=== PATIENT | male | born 1970 | race Caucasian/White ===

== ENCOUNTER 2021-04-12 20:22 | Emergency (ER) | payer SELFPAY ==
[2021-04-12] MEDS ORDERED: Morphine 4 MG/ML VIAL ONE (21:02)
[2021-04-12 21:03] LABS: #Basophils 0.1 thou/uL (0.0-0.2); #Eosinphils 0.1 thou/uL (0.0-0.7); #Lymphocytes 2.6 thou/uL (1.20-3.40); #Neutrophils 7.3 thou/uL (1.40-6.50); %Basophils 0.7 % (0.0-1.0); %Eosinophils 1.3 % (0.0-10.0); %Lymphocytes 23.7 % (21.0-51.0); %Monocytes 9.1 % (0.0-10.0); %Neutrophils 65.3 % (42.0-75.0); Hemoglobin 16.9 g/dL (14.0-18.0); Mean Corpuscular HGB CONC 34.1 g/dL (32.0-36.0); Mean Corpuscular Hemoglobin 34.3 pg (27.0-31.0); Mean Platelet Volume 7.4 fL (7.4-10.4); Platelet Count 204 thou/uL (130-400); RBC Distribution Width 12.7 % (11.5-14.5); Red Blood Cell (RBC) Count 4.92 mill/uL (4.70-6.10); White Blood Cell (WBC) Count 11.1 thou/uL (4.8-10.8)
[2021-04-12 21:25] LABS: ALT (SGPT) 24 U/L (8-55); AST (SGOT) 20 U/L (5-34); Albumin 3.9 g/dL (3.5-5.0); Alkaline Phosphatase 38 U/L (40-110); Anion Gap 15 mmol/L (10-20); BUN (Urea Nitrogen) 8 mg/dL (8.9-20.6); Bilirubin, Total 0.4 mg/dL (0.2-1.2); Calc. Creatinine Clearance 0 mL/min (70-130); Carbon Dioxide 23 mmol/L (22-29); Chloride 103 mmol/L (98-107); Globulin 3.1 g/dL (2.4-3.5); Glucose 130 mg/dL (70-105); Potassium 4.4 mmol/L (3.5-5.1); Sodium 137 mmol/L (136-145)
[2021-04-13] MEDS ORDERED: Acetaminophen 500 MG TAB ONE (00:07)
== END 2021-04-13 00:45 | disposition home or self-care (01) ==
LOC: ERS 20:22
DX: R07.9 Chest pain, unspecified (principal); I10 Essential (primary) hypertension; Z87.891 Personal history of nicotine dependence
CPT/HCPCS: 36415; 71045; 80053; 84484; 85025; 93005; 96374; J2270

== ENCOUNTER 2021-09-29 02:44 | Inpatient (IN) | payer SELFPAY ==
[2021-09-29 03:39] LABS: #Eosinphils 0.1 thou/uL (0.0-0.7); #Lymphocytes 2.4 thou/uL (1.20-3.40); #Monocytes 1.5 thou/uL (0.11-0.59); #Neutrophils 7.4 thou/uL (1.40-6.50); %Basophils 0.3 % (0.0-1.0); %Eosinophils 1.2 % (0.0-10.0); %Lymphocytes 21.2 % (21.0-51.0); %Monocytes 12.9 % (0.0-10.0); %Neutrophils 64.3 % (42.0-75.0); Mean Corpuscular HGB CONC 34.6 g/dL (32.0-36.0); Mean Corpuscular Hemoglobin 35.3 pg (27.0-31.0); Mean Platelet Volume 7.6 fL (7.4-10.4); Platelet Count 178 thou/uL (130-400); RBC Distribution Width 12.7 % (11.5-14.5); Red Blood Cell (RBC) Count 4.81 mill/uL (4.70-6.10); White Blood Cell (WBC) Count 11.4 thou/uL (4.8-10.8)
[2021-09-29 03:58] LABS: ALT (SGPT) 35 U/L (8-55); AST (SGOT) 29 U/L (5-34); Albumin 3.9 g/dL (3.5-5.0); Alkaline Phosphatase 40 U/L (40-110); Anion Gap 12 mmol/L (10-20); BUN (Urea Nitrogen) 12 mg/dL (8.4-25.7); Bilirubin, Total 0.5 mg/dL (0.2-1.2); Calc. Creatinine Clearance 0 mL/min (70-130); Calcium 10.5 mg/dL (7.8-10.44); Carbon Dioxide 26 mmol/L (22-29); Chloride 101 mmol/L (98-107); Estimated GFR 82; Globulin 3.1 g/dL (2.4-3.5); Glucose 121 mg/dL (70-105); Lipase 19 U/L (8-78); Potassium 4.3 mmol/L (3.5-5.1); Sodium 135 mmol/L (136-145)
[2021-09-29 04:19] LABS: CKMB 2.1 ng/mL (0-6.6)
[2021-09-29] MEDS ORDERED: Nitroglycerin 2% Ointment 1 INCH/1 GM Packet ONE (06:17)
[2021-09-29 07:04] LABS: Troponin I 0.032 ng/mL (< 0.028)
[2021-09-29 09:55] LABS: Cardiac Risk 5.8 (Less than 4.5); Cholesterol 209 mg/dl (< 200 Desired); HDL Cholesterol 36 mg/dL (>60 Neg Risk); LDL Cholesterol, Calculated 124 mg/dL; Triglycerides 244 mg/dL (Less than 150)
[2021-09-29 10:01] LABS: Troponin I 0.019 ng/mL (< 0.028)
[2021-09-29] MEDS: Atenolol 50 MG TAB PO SCH (10:55)
[2021-09-29] MEDS: Aspirin 81 mg Enteric Coated Tablet PO SCH (10:56)
[2021-09-29] MEDS: Enoxaparin Sodium 40 MG/0.4 ML SYRINGE SC SCH (10:56)
[2021-09-29 11:37] LABS: Phosphorus 3.2 mg/dL (2.3-4.7)
[2021-09-29] MEDS: Acetaminophen 325 MG TAB PO PRN (11:49)
[2021-09-29] MEDS ORDERED: Iopamidol-370 76% 500 ML 1 ML ONE (15:33)
[2021-09-29] MEDS ORDERED: Ketorolac Tromethamine 30 MG/ML VIAL IVP SCH (17:00)
[2021-09-29] MEDS: Rosuvastatin 20 MG TAB PO SCH (20:31)
[2021-09-30 04:52] LABS: Anion Gap 11 mmol/L (10-20); BUN (Urea Nitrogen) 14 mg/dL (8.4-25.7); Calc. Creatinine Clearance 114 mL/min (70-130); Calcium 9.1 mg/dL (7.8-10.44); Carbon Dioxide 26 mmol/L (22-29); Chloride 102 mmol/L (98-107); Estimated GFR 84; Glucose 91 mg/dL (70-105); Potassium 4.4 mmol/L (3.5-5.1); Sodium 135 mmol/L (136-145)
[2021-09-30 04:54] LABS: Band 1 % (5-11); Eosinophils 1 % (0-10); Hemoglobin 15.7 g/dL (14.0-18.0); Lymphocytes 30 % (21-51); MDiff Complete? YES; Macrocytosis SLIGHT = 6-15 cells (100X) (0-5/hpf); Mean Corpuscular HGB CONC 34.1 g/dL (32.0-36.0); Mean Corpuscular Hemoglobin 35.2 pg (27.0-31.0); Mean Platelet Volume 7.7 fL (7.4-10.4); Monocytes 12 % (0-10); Neutrophil 56 % (42-75); Ovalocytes SLIGHT = 2-5 cells (100X) (0-1/hpf); Platelet Count 156 thou/uL (130-400); Platelet Morphology Comment Appears Adequate; RBC Distribution Width 12.7 % (11.5-14.5); Red Blood Cell (RBC) Count 4.47 mill/uL (4.70-6.10); White Blood Cell (WBC) Count 9.7 thou/uL (4.8-10.8)
[2021-09-30] MEDS: Acetaminophen 325 MG TAB PO PRN ×3 (08:56→23:40)
[2021-09-30] MEDS: Atenolol 50 MG TAB PO SCH (08:57)
[2021-09-30] MEDS: Aspirin 81 mg Enteric Coated Tablet PO SCH (08:57)
[2021-09-30] MEDS: Enoxaparin Sodium 40 MG/0.4 ML SYRINGE SC SCH (08:57)
[2021-09-30] MEDS: Losartan 25 MG TAB PO SCH (08:57)
[2021-09-30] MEDS ORDERED: Clopidogrel Bisulfate 75 MG TAB PO SCH (15:45)
[2021-09-30] MEDS: Rosuvastatin 20 MG TAB PO SCH (21:04)
[2021-10-01 04:31] LABS: #Basophils 0.1 thou/uL (0.0-0.2); #Eosinphils 0.1 thou/uL (0.0-0.7); #Monocytes 1.5 thou/uL (0.11-0.59); %Basophils 0.5 % (0.0-1.0); %Lymphocytes 18.6 % (21.0-51.0); %Monocytes 14.3 % (0.0-10.0); %Neutrophils 65.6 % (42.0-75.0); Hemoglobin 15.8 g/dL (14.0-18.0); Mean Corpuscular HGB CONC 32.7 g/dL (32.0-36.0); Mean Corpuscular Hemoglobin 33.6 pg (27.0-31.0); Mean Platelet Volume 8.2 fL (7.4-10.4); Platelet Count 163 thou/uL (130-400); RBC Distribution Width 12.5 % (11.5-14.5); White Blood Cell (WBC) Count 10.7 thou/uL (4.8-10.8)
[2021-10-01 04:55] LABS: Anion Gap 11 mmol/L (10-20); BUN (Urea Nitrogen) 14 mg/dL (8.4-25.7); Calc. Creatinine Clearance 118 mL/min (70-130); Calcium 8.8 mg/dL (7.8-10.44); Carbon Dioxide 28 mmol/L (22-29); Chloride 103 mmol/L (98-107); Estimated GFR 88; Glucose 88 mg/dL (70-105); Potassium 4.4 mmol/L (3.5-5.1); Sodium 138 mmol/L (136-145)
[2021-10-01] MEDS: Atenolol 50 MG TAB PO SCH (11:05)
[2021-10-01] MEDS: Aspirin 81 mg Enteric Coated Tablet PO SCH (11:05)
[2021-10-01] MEDS: Enoxaparin Sodium 40 MG/0.4 ML SYRINGE SC SCH (11:06)
[2021-10-01] MEDS: Clopidogrel Bisulfate 75 MG TAB PO SCH (11:06)
[2021-10-01] MEDS: Folic Acid 1 MG TAB PO SCH (11:06)
[2021-10-01] MEDS: Acetaminophen 325 MG TAB PO PRN ×3 (11:07→20:31)
[2021-10-01] MEDS: Losartan 25 MG TAB PO SCH (11:39)
[2021-10-01 17:56] VITALS: BMI 32.1
[2021-10-01] MEDS: Rosuvastatin 20 MG TAB PO SCH (20:32)
[2021-10-01] MEDS ORDERED: Methocarbamol 500 MG TAB PO PRN (21:15)
[2021-10-02 04:50] LABS: Anion Gap 14 mmol/L (10-20); BUN (Urea Nitrogen) 11 mg/dL (8.4-25.7); Calc. Creatinine Clearance 135 mL/min (70-130); Calcium 9.1 mg/dL (7.8-10.44); Carbon Dioxide 26 mmol/L (22-29); Chloride 100 mmol/L (98-107); Estimated GFR 103; Glucose 86 mg/dL (70-105); Sodium 136 mmol/L (136-145)
[2021-10-02 05:16] LABS: Band 3 % (5-11); Eosinophils 1 % (0-10); Hemoglobin 16.3 g/dL (14.0-18.0); Lymphocytes 20 % (21-51); MDiff Complete? YES; Macrocytosis MODERATE=16-30 cells (100X) (0-5/hpf); Mean Corpuscular HGB CONC 33.7 g/dL (32.0-36.0); Mean Corpuscular Hemoglobin 34.3 pg (27.0-31.0); Mean Platelet Volume 7.7 fL (7.4-10.4); Metamyelocyte 1 % (0-0); Monocytes 18 % (0-10); Neutrophil 57 % (42-75); Platelet Count 170 thou/uL (130-400); Platelet Morphology Comment Appears Adequate; RBC Distribution Width 12.6 % (11.5-14.5); Red Blood Cell (RBC) Count 4.75 mill/uL (4.70-6.10); White Blood Cell (WBC) Count 10.7 thou/uL (4.8-10.8)
[2021-10-02] MEDS ORDERED: Aspirin 325 mg Enteric Coated Tablet PO SCH (09:00)
[2021-10-02] MEDS ORDERED: Baclofen 10 MG TAB PO SCH (09:00)
[2021-10-02] MEDS: Clopidogrel Bisulfate 75 MG TAB PO SCH (09:48)
[2021-10-02] MEDS: Atenolol 50 MG TAB PO SCH (09:48)
[2021-10-02] MEDS: Folic Acid 1 MG TAB PO SCH (09:48)
[2021-10-02] MEDS: Enoxaparin Sodium 40 MG/0.4 ML SYRINGE SC SCH (09:48)
[2021-10-02 16:38] VITALS: BP 132/68; TEMP 98.2
== END 2021-10-02 17:48 | disposition home or self-care (01) | DRG 65 ==
LOC: ERS 02:44 → ERHOLD 06:25 → 2NO 06:25 → OBSVTOIN 06:25 → 2NO 08:59
PROVIDERS: ADMIT Student in an Organized Health Care Education/Training Program; ATTEND Student in an Organized Health Care Education/Training Program
DX: I63.81 Other cerebral infarction due to occlusion or stenosis of small artery (principal); I47.2 Ventricular tachycardia; G81.94 Hemiplegia, unspecified affecting left nondominant side; Z20.822 Contact with and (suspected) exposure to COVID-19; R29.701 NIHSS score 1; I10 Essential (primary) hypertension; F17.210 Nicotine dependence, cigarettes, uncomplicated; R77.8 Other specified abnormalities of plasma proteins; R94.31 Abnormal electrocardiogram [ECG] [EKG]; I08.3 Combined rheumatic disorders of mitral, aortic and tricuspid valves; D75.89 Other specified diseases of blood and blood-forming organs; R20.8 Other disturbances of skin sensation; Z79.899 Other long term (current) drug therapy; Z79.82 Long term (current) use of aspirin; I25.2 Old myocardial infarction; Z90.49 Acquired absence of other specified parts of digestive tract; Z98.890 Other specified postprocedural states; Z82.3 Family history of stroke; Z80.9 Family history of malignant neoplasm, unspecified; Z82.49 Family history of ischemic heart disease and other diseases of the circulatory system
CPT/HCPCS: 36415; 70450; 70496; 70498; 70551; 71045; 71275; 74174; 80048; 80053; 80061; 82553; 82607; 82746; 83036; 83690; 83735; 84100; 84443; 84484; 85025; 93005; 93306; J1650; J1885; Q9967; U0003; U0005

== ENCOUNTER 2022-07-17 13:27 | Outpatient (CLI) | payer OTHER | END 2022-07-17 13:28 | disposition home or self-care (01) | LOC: BICRAD 13:27 | PROVIDERS: ATTEND Preventive Medicine Occupational Medicine | DX: I21.9 Acute myocardial infarction, unspecified (principal) | CPT/HCPCS: 71046 ==

== ENCOUNTER 2024-11-25 00:16 | Inpatient (IN) | payer SELFPAY ==
[2024-11-25] MEDS ORDERED: Ondansetron PF 4 MG/2 ML Vial ONE (00:54)
[2024-11-25] MEDS ORDERED: Pantoprazole 40 MG VIAL ONE (00:54)
[2024-11-25 01:05] LABS: #Basophils 0.05 10x3/uL (0.0-0.2); #Eosinophils 0.11 10x3/uL (0.0-0.7); #Monocytes 1.29 10x3/uL (0.11-0.59); #Neutrophils 4.21 10x3/uL (1.40-6.50); %Basophils 0.6 % (0.0-1.0); %Eosinophils 1.3 % (0.0-10.0); %Lymphocytes 30.4 % (21.0-51.0); %Monocytes 15.6 % (0.0-10.0); %Neutrophils 50.9 % (42.0-75.0); Hematocrit 42.0 % (42.0-52.0); Hemoglobin 14.2 g/dL (14.0-18.0); Mean Corpuscular Hemoglobin 32.3 pg (27.0-31.0); Mean Corpuscular Volume 95.5 fL (78.0-98.0); Platelet Count 214 10x3/uL (130-400); Red Blood Cell (RBC) Count 4.40 mill/uL (4.70-6.10); White Blood Cell (WBC) Count 8.27 10x3/uL (4.8-10.8)
[2024-11-25 01:22] LABS: ALT (SGPT) 61 U/L (Less than 45); AST (SGOT) 35 U/L (11-34); Albumin 3.7 g/dL (3.1-4.5); Alkaline Phosphatase 42 U/L (40-110); Anion Gap 16 mmol/L (10-20); BUN (Urea Nitrogen) 6 mg/dL (8.4-25.7); Bilirubin, Total 0.2 mg/dL (0.3-1.2); Calc. Creatinine Clearance 0 mL/min (70-130); Calcium 10.1 mg/dL (7.8-10.44); Carbon Dioxide 20 mmol/L (22-29); Chloride 102 mmol/L (98-107); Globulin 3.1 g/dL (2.4-3.5); Glucose 119 mg/dL (70-105); INR-International Normal Ratio 1.0; Lipase 26 U/L (8-78); Potassium 3.5 mmol/L (3.5-5.1); Prothrombin Time 13.3 sec (12.0-14.7); Sodium 134 mmol/L (136-145)
[2024-11-25] MEDS ORDERED: Mag-Al 1200 mg/1200 mg/30 ML UDCUP ONE (03:08)
[2024-11-25] MEDS ORDERED: Lidocaine Viscous Sol 2% 15 ml UD Cup ONE (03:08)
[2024-11-25] MEDS ORDERED: Ondansetron PF 4 MG/2 ML Vial IVP PRN (04:14)
[2024-11-25] MEDS ORDERED: Electrolyte Replacement Protocol 1 EACH FS PRN (04:15)
[2024-11-25] MEDS ORDERED: Acetaminophen 325 MG TAB ONE (05:05)
[2024-11-25] MEDS: Acetaminophen 325 MG TAB PO PRN (05:08)
[2024-11-25] MEDS ORDERED: Pantoprazole 40 MG VIAL IVP SCH (09:00)
[2024-11-25] MEDS: Multivitamin W/ Minerals 1 TAB PO SCH (09:50)
[2024-11-25] MEDS: Potassium Chloride 20 MEQ in Premix 1 BAG IVPB SCH (09:51)
[2024-11-25] MEDS: Pantoprazole 40 MG VIAL IVP SCH (09:51)
[2024-11-25 09:56] LABS: Hematocrit 44.9 % (42.0-52.0); Hemoglobin 14.9 g/dL (14.0-18.0)
[2024-11-25] MEDS: Calcium Carbonate 500 MG ChewTAB PO PRN (10:02)
[2024-11-25] MEDS: Thiamine 100 MG TAB PO SCH (10:45)
[2024-11-25] MEDS: Folic Acid 1 MG TAB PO SCH (10:45)
[2024-11-25] MEDS ORDERED: Iopamidol 370 76% 100 ML VIAL ONE (11:16)
[2024-11-25 17:07] VITALS: BMI 36.3
[2024-11-25 18:12] LABS: Potassium 4.4 mmol/L (3.5-5.1)
[2024-11-26 04:21] LABS: #Basophils 0.04 10x3/uL (0.0-0.2); #Eosinophils 0.12 10x3/uL (0.0-0.7); #Monocytes 1.06 10x3/uL (0.11-0.59); #Neutrophils 5.11 10x3/uL (1.40-6.50); %Basophils 0.5 % (0.0-1.0); %Eosinophils 1.4 % (0.0-10.0); %Lymphocytes 24.3 % (21.0-51.0); %Monocytes 12.6 % (0.0-10.0); %Neutrophils 60.5 % (42.0-75.0); Hematocrit 42.7 % (42.0-52.0); Hemoglobin 14.0 g/dL (14.0-18.0); Mean Corpuscular Hemoglobin 32.1 pg (27.0-31.0); Mean Corpuscular Volume 97.9 fL (78.0-98.0); Platelet Count 179 10x3/uL (130-400); Red Blood Cell (RBC) Count 4.36 mill/uL (4.70-6.10); White Blood Cell (WBC) Count 8.44 10x3/uL (4.8-10.8)
[2024-11-26 04:56] LABS: ALT (SGPT) 45 U/L (Less than 45); AST (SGOT) 25 U/L (11-34); Albumin 3.6 g/dL (3.1-4.5); Alkaline Phosphatase 42 U/L (40-110); Anion Gap 14 mmol/L (10-20); BUN (Urea Nitrogen) 8 mg/dL (8.4-25.7); Bilirubin, Total 0.4 mg/dL (0.3-1.2); Calc. Creatinine Clearance 128 mL/min (70-130); Calcium 9.0 mg/dL (7.8-10.44); Carbon Dioxide 23 mmol/L (22-29); Chloride 104 mmol/L (98-107); Globulin 2.8 g/dL (2.4-3.5); Glucose 96 mg/dL (70-105); Potassium 3.9 mmol/L (3.5-5.1); Sodium 137 mmol/L (136-145)
[2024-11-26] MEDS ORDERED: PROPOFOL 200 MG/20 ML VIAL ONE (09:17)
[2024-11-26] MEDS: Folic Acid 1 MG TAB PO SCH (10:10)
[2024-11-26] MEDS: Thiamine 100 MG TAB PO SCH (10:10)
[2024-11-26] MEDS: Multivitamin W/ Minerals 1 TAB PO SCH (10:10)
[2024-11-26 11:29] VITALS: BP 123/74; TEMP 98.4
[2024-11-27] MEDS ORDERED: Pantoprazole 40 MG DR.TAB PO SCH (09:00)
== END 2024-11-26 16:46 | disposition home or self-care (01) | DRG 378 ==
LOC: ERS 00:16 → ERHOLD 04:22 → PCU 08:13
PROVIDERS: ADMIT Student in an Organized Health Care Education/Training Program; ATTEND Internal Medicine
PROC: 0DB78ZX Excision of Stomach, Pylorus, Via Natural or Artificial Opening Endoscopic, Diagnostic (ICD-10-PCS; principal; 2024-11-26)
DX: K29.71 Gastritis, unspecified, with bleeding (principal); D62 Acute posthemorrhagic anemia; E87.1 Hypo-osmolality and hyponatremia; E87.20 Acidosis, unspecified; I69.354 Hemiplegia and hemiparesis following cerebral infarction affecting left non-dominant side; K29.81 Duodenitis with bleeding; K92.1 Melena; I48.91 Unspecified atrial fibrillation; E66.9 Obesity, unspecified; K31.7 Polyp of stomach and duodenum; K22.70 Barrett's esophagus without dysplasia; E87.6 Hypokalemia; R94.5 Abnormal results of liver function studies; N18.2 Chronic kidney disease, stage 2 (mild); I12.9 Hypertensive chronic kidney disease with stage 1 through stage 4 chronic kidney disease, or unspecified chronic kidney disease; I25.2 Old myocardial infarction; Z98.890 Other specified postprocedural states; Z90.49 Acquired absence of other specified parts of digestive tract; Z79.01 Long term (current) use of anticoagulants; Z79.899 Other long term (current) drug therapy; Z79.02 Long term (current) use of antithrombotics/antiplatelets; F17.210 Nicotine dependence, cigarettes, uncomplicated; K70.0 Alcoholic fatty liver; Z71.41 Alcohol abuse counseling and surveillance of alcoholic; Z71.6 Tobacco abuse counseling; F10.20 Alcohol dependence, uncomplicated; Y90.0 Blood alcohol level of less than 20 mg/100 ml; K40.90 Unilateral inguinal hernia, without obstruction or gangrene, not specified as recurrent; K22.89 Other specified disease of esophagus; Z68.36 Body mass index [BMI] 36.0-36.9, adult
CPT/HCPCS: 36415; 71045; 71275; 74177; 80053; 80307; 83690; 84484; 85025; 85610; 86850; 86900; 86901; 88305; 93005; 94760; 96374; 96375; J2270; J2405; J2470; J2704; J3480; J7120; Q9967